=== PATIENT | male | born 1950 | race Caucasian/White ===

== ENCOUNTER 2016-09-02 11:24 | Emergency (ER) | payer MEDICARE ==
--- NOTE | 2016-09-02 12:17 | ER NURSING DOCUMENTATION ---
Nurse's Notes [facility] Name:Will Ramos Age:65 yrs Sex:Male :1950 Arrival Date:09/02/2016 Time:11:24 Bed4 Private MD: Diagnosis:Gout Presentation: 09/02 11:28 Acuity: FRANCISCO 3 tg 11:39 Presenting complaint: Patient states: Travelled to yesterday by RV. Noticed swelling tg and pain in right foot. No trauma. No redness/warmth. Transition of care: patient was not received from another setting of care. 11:39 Method Of Arrival: Private Vehicle tg Triage Assessment: 11:42 General: Appears uncomfortable, Behavior is cooperative, pleasant. Pain: Complains of tg pain in right foot. Neuro: Level of Consciousness is awake, alert. Respiratory: Respiratory effort is even, unlabored. Derm: Skin is pink, warm & dry. Musculoskeletal: Circulation, motion, and sensation intact Swelling present in right foot. Historical: - Allergies: No known drug Allergies; - Home Meds: 1. amlodipine oral 2. med list scanned in - PMHx: [place]; stents; chronic kidney disease; GOUT; HYPERTENSION; HIGH CHOLESTEROL; - PSHx: CABG; Rib repair; - Tetanus: < 10 years. - Ebola Screening: : Patient negative for fever greater than or equal to 101.5 degrees Fahrenheit, and additional compatible Ebola Virus Disease symptoms. Patient denies exposure to infectious person. Patient denies travel to an Ebola-affected area in the 21 days before illness onset. No symptoms or risks identified at this time. . - Immunization history: Flu Vaccine < 1 year. - Social history: Smoking status: Patient states was never smoker of tobacco. Screenin:42 Infectious Disease Risk Unable to Obtain. Abuse screen: Denies threats or abuse. Denies tg injuries from another. Nutritional screening: No deficits noted. Vital Signs: 11:36 BP 157 / 82 RA Sitting (auto/reg); Pulse 72 LA; Resp 16 S; Temp 98.7(O); Pulse Ox 90% em3 on R/A; Weight 91.63 kg (R); Height 5 ft. 8 in. (172.72 cm) (R); Pain 10/10; 11:36 Body Mass Index 30.71 (91.63 kg, 172.72 cm) em3 ED Course: 11:25 Patient arrived in ED. lm3 11:28 El Keller, RN is Primary Nurse. tg 11:28 Triage completed. tg 11:29 Jay Downs MD is Attending Physician. ia 11:36 Valuables Remains with patient Patient has correct armband on for positive em3 identification. Bed in low position. Call light in reach. 11:39 Basilio wrap to right ankle. em3 12:00 Other attached tg Administered Medications: No medications were administered Outcome: 11:42 Discharge ordered by MD. ia 12:15 Discharged to home ambulatory, with family. tg 12:15 Condition: stable 12:15 Discharge Assessment: Patient awake, alert and oriented x 3. No cognitive and/or functional deficits noted. Patient verbalized understanding of disposition instructions. 12:15 Instructed on discharge instructions, follow up and referral plans. medication usage, Prescriptions given X 2. 12:16 Patient left the ED. tg 05 12:50 Discharge F/U Call: Spoke with: patient. Are you having any pain? How are you lc managing your pain? Patient is taking medication: RX X 2 Have you filled your prescriptions? yes. Did your discharge instructions answer all of your questions? yes Have you made a f/u appointment? yes Overall Care on a scale of 1-10 with 10 being the best care, you rate our care as: Other comments: FEELING BETTER Signatures: El Keller, RN Maliha Alexandra RN RN Jay Downs MD MD ia Carole, Jarrell em3 Katelyn Fleming lm3
--- NOTE | 2016-09-02 12:17 | ER PHYSICIAN DOCUMENTATION ---
Physician Documentation [facility] Name:Will Ramos Age:65 yrs Sex:Male :1950 Arrival Date:09/02/2016 Time:11:24 Bed4 Private MD: Jay Guerra Disposition: 09/02/16 11:42 Discharged to Home/Self Care. Impression: Gout. - Condition is Good. - Discharge Instructions: GOUTY ARTHRITIS. - Prescriptions for Hydrocodone- Acetaminophen 5-325 mg Oral Tablet - take 1 tablet by ORAL route every 6 hours As needed; 20 tablet. Medrol (Raul) 4 mg Oral - take 1 Pack by ORAL route as directed - follow package instructions; 1 packet. - Medical Reconciliation form form. - Follow up: Private Physician; When: 1 week; Reason: Recheck today's complaints, Continuance of care. - Problem is new. - Symptoms are unchanged. HPI: 09/02 11:38 This 65 yrs old Male presents to ER with complaints of Foot Pain - RIGHT. sc 11:38 The patient presents with pain, that is acute. The complaints affect the right foot. sc Context: The problem was sustained at home, resulted from an unknown cause, the patient can fully bear weight, the patient is able to ambulate. Onset: The symptom(s)/episode began/occurred yesterday. Associated signs and symptoms: The patient has no apparent associated signs or symptoms. The patient has experienced a previous episode, and the symptoms today are exactly the same, diagnosed with gout. Historical: - Allergies: No known drug Allergies; - Home Meds: 1. amlodipine oral 2. med list scanned in - PMHx: [place]; stents; chronic kidney disease; GOUT; HYPERTENSION; HIGH CHOLESTEROL; - PSHx: CABG; Rib repair; - Tetanus: < 10 years. - Ebola Screening: : Patient negative for fever greater than or equal to 101.5 degrees Fahrenheit, and additional compatible Ebola Virus Disease symptoms. Patient denies exposure to infectious person. Patient denies travel to an Ebola-affected area in the 21 days before illness onset. No symptoms or risks identified at this time. . - Immunization history: Flu Vaccine < 1 year. - Social history: Smoking status: Patient states was never smoker of tobacco. ROS: 11:40 MS/extremity: Positive for pain. sc 11:40 Constitutional: Negative for fever, chills, and weight loss. sc Eyes: Negative for injury, pain, redness, and discharge. Neck: Negative for injury, pain, and swelling. Cardiovascular: Negative for chest pain, palpitations, and edema. Back: Negative for injury and pain. Skin: Negative for injury, rash, and discoloration. 11:40 Neuro: Negative for headache, weakness, numbness, tingling, and seizure. Exam: Constitutional: This is a well developed, well nourished patient who is awake, alert, and in no acute distress. Head/Face: Normocephalic, atraumatic. Eyes: Pupils equal round and reactive to light, extra-ocular motions intact. Lids and lashes normal. Conjunctiva and sclera are non-icteric and not injected. Cornea within normal limits. Periorbital areas with no swelling, redness, or edema. Neck: Trachea midline, no thyromegaly or masses palpated, and no cervical lymphadenopathy. Supple, full range of motion without nuchal rigidity, or vertebral point tenderness. No meningismus. Back: No spinal tenderness. No costovertebral tenderness. Full range of motion. 11:40 Skin: Warm, dry with normal turgor. Normal color with no rashes, no lesions, and no sc evidence of cellulitis. 11:40 Musculoskeletal/extremity: Extremities: grossly normal except: noted in the right lateral malleolus: ROM: intact in all extremities, Circulation is intact in all extremities. Sensation intact. Vital Signs: 11:36 BP 157 / 82 RA Sitting (auto/reg); Pulse 72 LA; Resp 16 S; Temp 98.7(O); Pulse Ox 90% em3 on R/A; Weight 91.63 kg (R); Height 5 ft. 8 in. (172.72 cm) (R); Pain 10/10; 11:36 Body Mass Index 30.71 (91.63 kg, 172.72 cm) em3 MDM: 11:29 Patient medically screened. sc 11:41 Differential diagnosis: fracture, sprain, arthritis, gout, cellulitis. Data reviewed: [place] vital signs, nurses notes, and as a result, I will discharge patient. Counseling: I had a detailed discussion with the patient and/or guardian regarding: the historical points, exam findings, and any diagnostic results supporting the discharge/admit diagnosis, the need for outpatient follow up, to return to the emergency department if symptoms worsen or persist or if there are any questions or concerns that arise at home. 12:00 Other attached tg 09/02 11:43 Order name: ORTHO: 3" Basilio Wrap; Complete Time: : tg Dispensed Medications: No medications were administered Signatures: El Keller RN RN tg Jay Downs MD MD il
== END 2016-09-02 12:17 | disposition home or self-care (01) ==
LOC: ER 11:24
DX: M10.9 Gout, unspecified (principal); I10 Essential (primary) hypertension; I25.2 Old myocardial infarction; Z95.5 Presence of coronary angioplasty implant and graft; Z79.02 Long term (current) use of antithrombotics/antiplatelets; Z79.899 Other long term (current) drug therapy
CPT/HCPCS: 99283